=== PATIENT | female | born 1985 | race American Indian/Alaskan Native ===

== ENCOUNTER 2019-04-02 11:25 | Emergency (ER) | payer MEDICAID ==
[2019-04-02 11:41] VITALS: BP 98/78
[2019-04-02] MEDS ORDERED: DELTASONE PO ONE (11:41)
[2019-04-02] MEDS ORDERED: PROVENTIL IH ONE (11:41)
[2019-04-02] MEDS ORDERED: ATROVENT IH ONE (11:41)
--- NOTE | 2019-04-02 11:41 | Emergency Department Report ---
Blank Doc - Documentation Documentation: This is a 33-year-old female that presents with wheezing and cough. This initial assessment/diagnostic orders/clinical plan/treatment(s) is/are subject to change based on patient's health status, clinical progression and re- assessment by fellow clinical providers in the ED. Further treatment and workup at subsequent clinical providers discretion. Patient/guardians urged not to elope from the ED as their condition may be serious if not clinically assessed and managed. Initial orders include: 1- Patient sent to [facility] for further evaluation and treatment 2- breathing treatment/steroids 3- CXR
--- NOTE | 2019-04-02 12:33 | XRay Report ---
CHEST 2 VIEWS INDICATION / CLINICAL INFORMATION: wheezing/sob/cough. History of asthma. COMPARISON: None available. FINDINGS: SUPPORT DEVICES: None. HEART / MEDIASTINUM: No significant abnormality. LUNGS / PLEURA: No significant pulmonary or pleural abnormality. No pneumothorax. ADDITIONAL FINDINGS: No significant additional findings. IMPRESSION: 1. No acute findings. Signer Name: Christopher Anaya MD Signed: 04/02/2019 12:29 PM Workstation Name: [id number]
--- NOTE | 2019-04-02 13:17 | Emergency Department Report ---
Minor Respiratory - HPI Chief Complaint: Adult Asthma Stated Complaint: ASTHMA/PINK EYE Time Seen by Provider: 04/02/19 11:40 Duration: 2 Days Severity: mild Minor Respiratory: Yes Able to Tolerate Fluids, No Rhinorrhea, No Sore Throat, No Ear Pain, No Cough, No Sick Contacts, No Hemoptysis, No Chest Pain, No Shortness of Breath, No Fever Other History: This is a 33-year-old female with a history of childhood asthma intermittent flareups who presents to ED complaining of asthma exacerbation patient states she's been out of her medication for the past 6 months. Patient also admits a nonproductive dry cough. She denies fevers/chills/nausea vomiting ED Review of Systems ROS: Stated complaint: ASTHMA/PINK EYE Other details as noted in HPI Comment: All other systems reviewed and negative ED Past Medical Hx - Past Medical History Previous Medical History?: Yes Hx Hypertension: No Hx Congestive Heart Failure: No Hx Diabetes: No Hx Deep Vein Thrombosis: No Hx Renal Disease: No Hx Sickle Cell Disease: No Hx Seizures: No Hx Asthma: Yes (ALBUTEROL RESQ INHALER) Hx COPD: No Hx HIV: No - Surgical History Past Surgical History?: No - Social History Smoking Status: Never Smoker Substance Use Type: None - Medications Home Medications: Home Medications Medication Instructions Recorded Confirmed Last Taken Type Ibuprofen [Motrin 800 MG tab] 800 mg PO Q8HR PRN #30 tablet 01/27/17 Unknown Rx ALBUTEROL Inhaler (OR & NICU) 2 puff IH QID PRN #1 inhalation 04/02/19 Unknown Rx [ProAir HFA Inhaler] Benzonatate [Tessalon Perles] 100 mg PO Q8HR #30 capsule 04/02/19 Unknown Rx prednisoLONE [Millipred 5mg (6 day 5 mg PO QDAY #1 tab.ds.pk 04/02/19 Unknown Rx 21 tab dosepak)] Minor Respiratory Exam - Exam General: Vital signs noted. No distress. Alert and acting appropriately. HEENT: Yes Moist Mucous Membranes, No Pharyngeal Erythema, No Pharyngeal Exudates, No Rhinorrhea, No Conjuctival Injection, No Frontal Tenderness, No Maxillary Tenderness Ear: Neither TM Bulge, Neither TM Erythema, Neither EAC Pain, Neither EAC Discharge Neck: Yes Supple, No Adenopathy Lungs: Yes Good Air Exchange, No Wheezes, No Ronchi, No Stridor, No Cough, No Labored Respirations, No Retractions, No Use of Accessory Muscles, No Other Abnormal Lung Sounds Heart: Yes Regular, No Murmur Abdomen: Yes Normal Bowel Sounds, No Tenderness, No Peritoneal Signs Skin: No Rash, No Edema Neurologic: Alert and oriented, no deficits. Musculoskeletal: Unremarkable. ED Course Vital Signs 04/02/19 11:40 Temperature 98.4 F Pulse Rate 102 H Respiratory 20 Rate Blood Pressure 98/78 O2 Sat by Pulse 96 Oximetry ED Medical Decision Making - Radiology Data Radiology results: report reviewed, image reviewed COMPARISON: None available. FINDINGS: SUPPORT DEVICES: None. HEART / MEDIASTINUM: No significant abnormality. LUNGS / PLEURA: No significant pulmonary or pleural abnormality. No pneumothorax. ADDITIONAL FINDINGS: No significant additional findings. IMPRESSION: 1. No acute findings. Signer Name: Christopher Anaya MD Signed: 04/02/2019 12:29 PM Workstation Name: [id number] Transcribed By: DT Dictated By: Anatoliy Anaya MD Electronically Authenticated By: Anatoliy Anaya MD Signed Date/Time: 04/02/19 1229 - Medical Decision Making 33-year-old female presents with asthma exacerbation (Mild) ED course: Patient received a breathing treatment, prednisone in the ED. Chest x-ray ordered, chest x-ray shows no acute findings. Patient had no respiratory distress in the ED. Post treatment evaluation: No wheezing heard, no use of accessory muscles, I discussed with the patient to follow up with her primary care physician. I discussed with the patient will be going home on with albuterol inhaler as well as nebulizer Vital signs are normalized, patient is saturation at 98% on room air. I discussed with the patient is symptoms worsen to return to ED immediately. Critical care attestation.: If time is entered above; I have spent that time in minutes in the direct care of this critically ill patient, excluding procedure time. ED Disposition Clinical Impression: Asthma Disposition: DC-01 TO HOME OR SELFCARE Is pt being admited?: No Does the pt Need Aspirin: No Condition: Stable Instructions: Asthma (ED) Additional Instructions: Make sure to follow up with the primary care physician as discussed. Take all your medications as you've been prescribed. If you have any worsening symptoms or develop new symptoms please return to ED immediately. Prescriptions: prednisoLONE [Millipred 5mg (6 day 21 tab dosepak)] 5 mg PO QDAY #1 tab.ds.pk ALBUTEROL Inhaler (OR & NICU) [ProAir HFA Inhaler] 2 puff IH QID PRN #1 inhalation PRN Reason: Shortness Of Breath Benzonatate [Tessalon Perles] 100 mg PO Q8HR #30 capsule Referrals: SAÚL DUMAS MD [Referring] - 3-5 Days Forms: Work/School Release Form(ED) Time of Disposition: 13:36
== END 2019-04-02 13:52 | disposition home or self-care (01) ==
LOC: ED 11:25
DX: J45.901 Unspecified asthma with (acute) exacerbation (principal); Z88.0 Allergy status to penicillin; Z79.1 Long term (current) use of non-steroidal anti-inflammatories (NSAID)
CPT/HCPCS: 71046; 94644; 94645; 99284; J7512

== ENCOUNTER 2021-12-07 05:33 | Emergency (ER) | payer OTHER ==
[2021-12-07 05:57] VITALS: BP 132/80
== END 2021-12-07 07:30 | disposition left against medical advice (07) ==
LOC: ED 05:33
DX: H57.11 Ocular pain, right eye (principal); Z53.21 Procedure and treatment not carried out due to patient leaving prior to being seen by health care provider